=== PATIENT | male | born 1995 | race African-American/Black ===

== ENCOUNTER 2017-03-26 15:33 | Emergency (ER) | payer OTHER ==
[2017-03-26] MEDS ORDERED: AMOXicillin 250 MG CAP ONE (16:04)
[2017-03-26] MEDS ORDERED: traMADol HCl 50 MG TAB ONE (16:12)
== END 2017-03-26 16:20 | disposition home or self-care (01) ==
LOC: NAV ERS 15:33
DX: H66.41 Suppurative otitis media, unspecified, right ear (principal)
CPT/HCPCS: 99282